=== PATIENT | male | born 1990 | race Native Hawaiian/Other Pacific Islander ===

== ENCOUNTER 2016-08-03 16:03 | Emergency (ER) | payer OTHER ==
[~2016-08-03] VITALS: Ht 193 cm; Wt 97.5 kg
[~2016-08-03 16:03] MED LIST: COLCRYS 0.6MG0.6 MG OR
[2016-08-03 16:44] LABS: PLATELET COUNT 242 K/uL (142-355)
[2016-08-03 16:55] LABS: POTASSIUM 4.1 mmol/L (3.6-5.2); SODIUM 136 mmol/L (136-145)
[2016-08-03 20:42] VITALS: BP 148/78; TEMP 98.9
== END 2016-08-03 20:44 | disposition home or self-care (01) ==
LOC: ED 16:03
DX: K36 Other appendicitis (principal); N20.0 Calculus of kidney
CPT/HCPCS: 36415; 80053; 81000; 82150; 83690; 85027; 96360; 96372; 99284; J0696; Q9963

== ENCOUNTER 2016-08-04 16:00 | Day surgery (SDC) | payer OTHER ==
[~2016-08-04] VITALS: Ht 193 cm; Wt 117.7 kg
[2016-08-05 05:11] LABS: PLATELET COUNT 211 K/uL (142-355)
[2016-08-05 06:29] LABS: SODIUM 136 mmol/L (136-145)
== END 2016-08-05 11:00 | disposition home or self-care (01) ==
LOC: OR 16:00 → MED/SURG 16:00 → OR 08-05 11:00
PROVIDERS: Student in an Organized Health Care Education/Training Program
PROC: 0DTJ4ZZ Resection of Appendix, Percutaneous Endoscopic Approach (ICD-10-PCS; principal; 2016-08-04)
DX: K35.80 Unspecified acute appendicitis (principal)
CPT/HCPCS: 36415; 80053; 83735; 85027; 94760; 96365; 96366; 96367; 96372; J0132; J0690; J0744; J1100; J1170; J1644; J2765; J3010; J3490; S0028

== ENCOUNTER 2018-02-09 16:45 | Emergency (ER) | payer OTHER ==
[~2018-02-09] VITALS: Ht 194.3 cm; Wt 105.2 kg
[2018-02-09 19:58] LABS: PLATELET COUNT 222 K/uL (142-355)
[2018-02-09 20:07] LABS: POTASSIUM 3.7 mmol/L (3.6-5.2)
[2018-02-09 21:25] VITALS: BP 149/87; TEMP 98
== END 2018-02-09 21:25 | disposition short-term general hospital (02) ==
LOC: ED 16:45
PROVIDERS: Family Medicine
DX: S62.634A Displaced fracture of distal phalanx of right ring finger, initial encounter for closed fracture (principal); S62.620A Displaced fracture of middle phalanx of right index finger, initial encounter for closed fracture; W30.89XA Contact with other specified agricultural machinery, initial encounter
CPT/HCPCS: 36415; 80053; 85027; 96365; 96374; 96375; 99284; J2175; J2550; J7040

== ENCOUNTER 2018-02-09 21:42 | Outpatient (CLI) | payer OTHER | END 2018-02-09 23:57 | disposition short-term general hospital (02) | LOC: AMB 21:42 | DX: S62.634A Displaced fracture of distal phalanx of right ring finger, initial encounter for closed fracture (principal); S62.620A Displaced fracture of middle phalanx of right index finger, initial encounter for closed fracture; W30.89XA Contact with other specified agricultural machinery, initial encounter | CPT/HCPCS: A0425; A0427 ==

== ENCOUNTER 2021-01-12 20:08 | Emergency (ER) | payer OTHER ==
[~2021-01-12] VITALS: Ht 194.3 cm; Wt 115.2 kg
[2021-01-12 21:30] VITALS: BP 148/92; TEMP 98.1
== END 2021-01-12 21:30 | disposition home or self-care (01) ==
LOC: ED 20:08
DX: M54.59 Other low back pain (principal); G89.29 Other chronic pain
CPT/HCPCS: 96372; 99282; J1885